=== PATIENT | female | born 1940 | race Caucasian/White ===

== ENCOUNTER 2017-03-06 06:59 | Observation (INO) | payer OTHER ==
[~2017-03-06] VITALS: Ht 160 cm; Wt 62.5 kg
--- NOTE | ~2017-03-06 | EKG ---
[place] [address] [facility] [place] [address] ELECTROCARDIOGRAM REPORT Name: KALYANI JOINER Room #: 217-P [facility]#: [id number] Admission: 03/06/17 Attend Phys: Jose Deshpande MD, Discharge: 03/07/17 Date of : 36 Report #: [id number] THIS REPORT FOR: //name// [facility] Test Date: 2017-03-06 Test Time: 07:36:29 Pat Name: KALYANI JOINER Department: Room: [facility] Gender: F Rn Quality: : 1940 Requested By: Jose Deshpande Order Number: [id number] MD: Abner Villalobos Measurements Intervals [place] Rate: 56 P: 3 NE: 158 QRS: -6 QRSD: 89 T: 9 QT: 437 QTc: 422 Interpretive Statements Sinus rhythm LVH by voltage Compared to ECG 06/04/2015 13:02:29 No significant change was found Electronically Signed On 03-08-2017 7:05:00 CDT by Abner Villalobos [email or web address] <ELECTRONICALLY SIGNED> By: Abner Villalobos MD, [facility] 03/08/17704 5 Abner Villalobos MD, [facility] /EPI
--- NOTE | ~2017-03-06 | CATHLAB ---
[place] [address] [place] [address] INVASIVE PROCEDURE REPORT Name: MYRNA JOINERN SIRISHA Room #: 217-P [facility] [place] .#: [id number] Admission: 03/06/17 Attend Phys: Jose Deshpande, Discharge: 03/07/17 Date of : 36 Date of Service: 03/09/17 1704 Report #: [id number] THIS REPORT FOR: //name// APPROVED REPORT Patient Details Patient Status: Out-Patient Room #: The patient is a 76 year-old female Event Personnel Jose Deshpande Manager Voice, Nuzhat Allen RN RN, Anamaria Walker Mahmood, Amber Scrub, Sandifer, David Monitor Procedure Narrative The patient was brought electively to the Cardiac Catheterization Laboratory and was prepped and draped in a sterile manner. The Right Groin^ was infiltrated with 1% Lidocaine subcutaneous anesthesia. A PINNACLE 6FR Sheath #[id number] sheath was inserted into the RFA^. Coronary angiography was performed using coronary diagnostic catheters. The right coronary system was accessed and visualized with a JR4 catheter. The left coronary system was accessed and visualized with a JL4 catheter. The left ventricle was accessed and visualized with a PIGTAIL catheter. An aortogram of the abdominal aorta was performed. The patient tolerated the procedure well and there were no complications associated with the procedure. Intraoperative Conscious Sedation Sedation start time: 8:49 Case end Time: 10:53 Fentanyl 100.0 mcg Versed 2.0 mg Fluoro Time: 24.06 minutes Dose: 1933 mGy Contrast Type and Amount: Omnipaque 285 ml Hemodynamics The aortic pressure is 188/84 mmHg with a mean of 89 mmHg. The left ventricular pressure is 175/6 mmHg with a mean of mmHg. PCI Technique Lesion Percutaneous coronary intervention was performed on the mid left anterior descending artery segment. A LAUNCHER 6FR EBU 3.5 #[id number] Guide Catheter was used to engage the LCA ostium. A Luge Wire .014 x 182CM #[id number] Interventional Guidewire was used to cross the [facility] [place] [address] INVASIVE PROCEDURE REPORT Name: KALYANI JOINER Room #: 217-P [facility] [place] ..#: [id number] Admission: 03/06/17 Attend Phys: Jose Deshpande, Discharge: 03/07/17 Date of : 36 Date of Service: 03/09/17 1704 Report #: [id number] lesion. BALLOON DILATION A Balloon catheter Sprinter OTW 2.5 x 12 #[id number] was inserted and inflated up to 10.00atm for 19seconds. Additional Inflation: 4.00atm for 19seconds. Additional Inflation: 4.00atm for 18seconds. STENT DEPLOYMENT A drug-eluting stent RESOLUTE OTW 2.5 X 18 #[id number] was inserted and inflated up to 10.00atm for 19seconds. Additional Inflation: 14.00atm for 23seconds. Additional Inflation: 16.00atm for 20seconds. PCI Technique Lesion 2 Percutaneous Coronary Intervention was performed on the first diagnonal branch segment. Conclusion #1 assessment PTCA stent of subtotal proximal mid LAD lesion bifurcation placement of a 2 5 x 18 and 2 5 x 8 resolute drug-eluting stents postdilated 2.7 mm in size moderate distal disease #2 successful PTCA of the ostial diagonal proximal lesion through the stent diagonal was jailed by the stent with 30-40% residual VALENTIN grade 3 flow #3 circumflex OM with 3040% proximal mid vessel lesion nondominant #4 distal left main with a 30% irregularity #5 dominant right with a mid vessel lesion of 40-50 and a distal lesion 4050% giving rise to a moderately disease PDA and ALVAREZ dominant system #6 normal left ventricular size and systolic function EF 60% #7 abdominal aorta is intact with mild aortic ectasia small aneurysm we'll evaluate with outpatient ultrasound. Discussion complex LAD diagonal system requiring dual wire technique multiple balloons and wires. Successful procedure outcome with widely patent LAD as stated above and PTCA of diagonal branch which was jailed. Will continue dual antiplatelet therapy at least one year. No MRI or dental work for 3 months no leg Jacuzzi or tubs for 1 week. Transfer to CCU in stable condition follow post stent protocol. <ELECTRONICALLY SIGNED> By: Jose Deshpande MD, [facility] 03/09/171703 03 03 Jose Deshpande MD, FACC /INF
--- NOTE | ~2017-03-06 | EKG ---
[address] [address] ELECTROCARDIOGRAM REPORT Name: KALYANI JOINER Room #: 217-[facility]#: [id number] Admission: 03/06/17 Attend Phys: Jose Deshpande MD, Discharge: 03/07/17 Date of : 36 Report #: [id number] THIS REPORT FOR: //name// [facility] Test Date: 2017-03-06 Test Time: 16:55:38 Pat Name: KALYANI JOINER Department: Room: [facility] Gender: F [employer]visor [employer]: [place] MODI : 1940 Requested By: Jose Deshpande Order Number: [id number] MD: Abner Villalobos Measurements Intervals [place] Rate: 70 P: 14 VT: 157 QRS: 16 QRSD: 93 T: 24 QT: 426 QTc: 460 Interpretive Statements Sinus rhythm Normal tracing Compared to ECG 06/04/2015 13:02:29 No significant changes Electronically Signed On 03-08-2017 7:17:59 CDT by Abner Villalobos [email or web address] <ELECTRONICALLY SIGNED> By: Abner Villalobos MD, [facility] 03/08/17716 1655 1655 Abner Villalobos MD, [facility] /EPI
--- NOTE | ~2017-03-06 | H ---
[facility] [place] [address] HISTORY AND PHYSICAL Name: KALYANI JOINER Room #: [facility].#: [id number] Admission: 03/06/17 Attend Phys: Jose Deshpande MD, Discharge: Date of : 36 Report #: [id number] THIS REPORT FOR: //name// CC: Jose Hunt MD DATE OF SERVICE: 03/06/2017 HISTORY OF PRESENT ILLNESS: The patient is a 76-year-old female admitted here today for cardiac catheterization. Previously, she had some recurrent and some atypical with typical symptoms of chest pain. Subsequently, underwent stress echocardiographic exam with , this was on 03/02/2017. There was an equivocal EKG and more significant echo finding suggestive of a subtle area of ischemia in the distal septum apical wall. Ejection fraction was normal at rest. She has been compliant with her medications. She has taken it fairly easy since our discussion last week. No recurrent. No pain at rest. History of hypertension and hypercholesterolemia. CURRENT MEDICATIONS: Temazepam, metoprolol 100, Norvasc 2.5, Prolia, pravastatin 40 and aspirin. PAST MEDICAL HISTORY: Positive for some borderline tachycardia, palpitations, now recurrent chest pain, hypertension, hypercholesterolemia, adenoidectomy, hysterectomy, rotator cuff surgery, TAHBSO and tonsillectomy. FAMILY HISTORY: Mother had coronary artery disease, but she was older. SOCIAL HISTORY: She is a former smoker. No illicit drugs, moderate alcohol, 1-2 glasses of wine a day. She is retired, with grown children, 3-4 cups of coffee a day. ALLERGIES: HCTZ AND PENICILLIN. REVIEW OF SYSTEMS: Essentially negative except for stated above. LABORATORY DATA: Lipids have been elevated in the past in the 300s, total cholesterol and LDL has been in the 150s. We are trying to treat these more aggressively. Creatinine today for this is 0.67, H and H are 13.9 and 42.5. ASSESSMENT: 1. Suspected coronary artery disease with chest pain, abnormal stress echo. 2. Hypertension. 3. Hypercholesterolemia. 4. Family history of premature coronary artery disease. 5. Degenerative joint disease. [facility] [address] [place] [address] HISTORY AND PHYSICAL Name: KALYANI JOINER Room #: [facility].#: [id number] Admission: 03/06/17 Attend Phys: Jose Deshpande MD, Discharge: Date of : 36 Report #: [id number] RECOMMENDATIONS AND PLAN: I have discussed above with the patient and will proceed to the catheterization lab to delineate the anatomy. Risks, benefits, alternatives were discussed with her, could resolve in intervention and I will certainly be in contact with you regarding the outcome. By: [id number] Jose Deshpande MD, FACC /nt
--- NOTE | ~2017-03-06 | EKG ---
[place] [address] [facility] [place] [address] ELECTROCARDIOGRAM REPORT Name: KALYANI JOINER Room #: 217-P [facility]#: [id number] Admission: 03/06/17 Attend Phys: Jose Deshpande MD, Discharge: 03/07/17 Date of : 36 Report #: [id number] THIS REPORT FOR: //name// [facility] Test Date: 2017-03-06 Test Time: 13:59:51 Pat Name: KALYANI JOINER Department: Room: [facility] Gender: F Bell Spinner Sousaphones: Mikaela ORTIZ : 1940 Requested By: Jose Deshpande Order Number: [id number] MD: Abner Villalobos Measurements Intervals [place] Rate: 67 P: 44 ND: 158 QRS: 10 QRSD: 94 T: -1 QT: 432 QTc: 456 Interpretive Statements Sinus rhythm Consider left ventricular hypertrophy Compared to ECG 06/04/2015 13:02:29 No significant changes Electronically Signed On 03-08-2017 7:15:11 CDT by Abner Villalobos [email or web address] <ELECTRONICALLY SIGNED> By: Abner Villalobos MD, [facility] 03/08/17 0715 [id number] [id number] Abner Villalobos MD, [facility] /EPI
--- NOTE | ~2017-03-06 | EKG ---
[place] [address] [facility] [place] [address] ELECTROCARDIOGRAM REPORT Name: KALYANI JOINER Room #: 217-[facility]#: [id number] Admission: 03/06/17 Attend Phys: Jose Deshpande MD, Discharge: 03/07/17 Date of : 36 Report #: [id number] THIS REPORT FOR: //name// [facility] Test Date: 2017-03-07 Test Time: 06:49:12 Pat Name: KALYANI JOINER Department: Room: [facility] Gender: F [employer] Senior Manager: : 1940 Requested By: Jose Deshpande Order Number: [id number] MD: Abner Villalobos Measurements Intervals [place] Rate: 59 P: 8 VT: 162 QRS: 7 QRSD: 93 T: 29 QT: 425 QTc: 421 Interpretive Statements Sinus rhythm No significant abnormality Compared to ECG 06/04/2015 13:02:29 No significant changes Electronically Signed On 03-08-2017 7:46:29 CDT by Abner Villalobos [email or web address] <ELECTRONICALLY SIGNED> By: Abner Villalobos MD, [facility] 03/08/17 0746 0649 Abner Villalobos MD, [facility] /EPI
--- NOTE | ~2017-03-06 | D ---
[facility] [place] [address] DISCHARGE SUMMARY Name: KALYANI JOINER Room #: 217-P [facility] M.R.#: [id number] Admission: 03/06/17 Attend Phys: Jose Deshpande MD, Discharge: Date of : 36 Report #: [id number] THIS REPORT FOR: //name// CC: Jose Hunt MD HOSPITAL COURSE: The patient is a 76-year-old female who was admitted with an abnormal stress echocardiogram. Suggested anterior wall ischemia. Subsequently taken to the catheterization lab and revealed a high grade complex proximal mid LAD diagonal bifurcation lesion. The fair amount of difficulty was able to eventually wire these vessels with dual wires and eventually dilate the LAD initially with a 2.5 balloon and then placed a 2.5 x 18 Resolute drug-eluting stent across the diagonal branch. This was obviously pinched the ostium, I was able to rewire again with a 2.25 balloon, this was also with some difficulty, I dilated the ostium through the stent, moderate disease in this diagonal was relatively small. I then had evidence of some significant narrowing distal to the LAD stents and extended that stent with a 2.5 x 8 Resolute drug-eluting stent, postdilated all with a 2.5 stents up to 2.8 mm in size, the 16-17 mm of pressure. She has preserved LV function and was treated with heparin and Integrilin and Brilinta loading dose of 90 b.i.d. with a baby aspirin. We will also restart metoprolol 100, Norvasc 2.5, pravastatin 40 and a baby aspirin, temazepam night p.r.n. and feels well. She is up and ambulating, the groin is stable. Potassium 3.4, creatinine is 0.6, H and H is 12.4 and 36.9. Troponin was 1.8 and I would expect that post-this procedure, so it is difficult. She will be discharged home on medications as stated. No MRI or dental work for 3 months. Low fat, low sodium, cholesterol diet, resume aerobic activity after 48 hours. No lying in tub, Jacuzzi or Solitario for a week. Follow up in 3 months in the office. DISCHARGE DIAGNOSES: 1. Coronary artery disease with successful PTCA stent of the LAD, successful PTCA of diagonal branch, which was jailed by the LAD stent with an excellent result. 2. Hypertension. 3. Hypercholesterolemia. 4. Degenerative joint disease. Thank you for asking us to assist in the care of this patient. By: [id number] Jose Deshpande MD, [facility] /nt
[~2017-03-06 06:59] MED LIST: ADVIL100 M2 PO; ALIGN4 MG PO; CALCIUM 500 +1 EAC6 PO; IBUPROFEN 200200 M1 PO; LIPITOR20 MG PO; MAGNESIUM250 M1 PO; NORVASC2.5 MG PO; PRAVACHOL40 MG PO; PROLIA60 MG/1 ML; TOPROL XL100 MG PO
[2017-03-06] MEDS ORDERED: ATORVASTATIN CA40 MG PO (07:24)
[2017-03-06] MEDS ORDERED: AVAPRO300 MG PO (07:24)
[2017-03-06] MEDS ORDERED: TOPROL XL100 MG PO (07:25)
[2017-03-06] MEDS ORDERED: ASPIRIN325 PO (07:26)
[2017-03-06 08:00] VITALS: BP 166/86
[2017-03-06 16:40] VITALS: BP 117/67
[2017-03-06 20:06] VITALS: BP 112/65
[2017-03-06 23:19] VITALS: BP 133/73
[2017-03-07 03:48] LABS: HEMATOCRIT 36.9 % (37.0-47.0); HEMOGLOBIN 12.4 gm/dL (12.0-15.0); MCH 29.4 pg (26.0-34.0); MCHC 33.7 g/dL (28.0-37.0); MCV 87.4 fL (80.0-100.0); RBC 4.22 mil/uL (4.20-5.00); RDW 15.1 % (10.5-14.5); WBC 5.8 thou/uL (4.0-11.0)
[2017-03-07 03:53] LABS: ANION GAP 11 mmol/L (7-16); BUN 16 mg/dL (7-18); CALCIUM 8.4 mg/dL (8.5-10.1); CHLORIDE 106 mmol/L (98-107); CHOLESTEROL 234 mg/dL (<200); CK-MB MASS 5.9 ng/mL (<0.5-3.6); CO2 23 mmol/L (21-32); CREATININE 0.6 mg/dL (0.6-1.0); GLUCOSE 92 mg/dL (74-106); HDL CHOLESTEROL 78 mg/dL (>40); LDL CHOLESTEROL 130 mg/dL (<100); POTASSIUM 3.4 mmol/L (3.5-5.1); SODIUM 140 mmol/L (136-145); TRIGLYCERIDE 133 mg/dL (<150); VLDL 27 mg/dL (<40)
[2017-03-07 03:57] LABS: SERUM ASSESSMENT Clear; TROPONIN-I 1.89 ng/mL (<0.04-0.07)
[2017-03-07 04:46] VITALS: BP 132/74
[2017-03-07 07:29] VITALS: BP 153/78
[2017-03-07] MEDS ORDERED: BRILINTA90 MG PO (07:44)
[2017-03-07] MEDS ORDERED: ASPIR 8181 MG PO (07:45)
[2017-03-07 07:54] VITALS: BP 153/78
[2017-03-07 08:23] VITALS: BP 153/78
== END 2017-03-07 11:03 | disposition home or self-care (01) ==
LOC: CATH 06:59 → 2N 15:28
PROVIDERS: Internal Medicine Cardiovascular Disease
DX: I25.10 Atherosclerotic heart disease of native coronary artery without angina pectoris (principal); I10 Essential (primary) hypertension; E78.00 Pure hypercholesterolemia, unspecified; M19.90 Unspecified osteoarthritis, unspecified site; Z79.891 Long term (current) use of opiate analgesic

== ENCOUNTER 2017-07-04 19:33 | Emergency (ER) | payer OTHER ==
[~2017-07-04] VITALS: Ht 160 cm; Wt 63.5 kg
[~2017-07-04 19:33] MED LIST changes: +ASPIR 8181 MG PO; +ASPIRIN325 PO; +ATORVASTATIN CA40 MG PO; +AVAPRO300 MG PO; +BRILINTA90 MG PO
[2017-07-04] MEDS ORDERED: BENICAR40 MG PO (19:46)
[2017-07-04] MEDS ORDERED: CRESTOR20 MG PO (19:47)
[2017-07-04] MEDS ORDERED: PLAVIX 75 MG TA75 M1 PO (19:48)
== END 2017-07-04 21:17 | disposition home or self-care (01) ==
LOC: ER 19:33
DX: S70.11XA Contusion of right thigh, initial encounter (principal); I10 Essential (primary) hypertension; E78.5 Hyperlipidemia, unspecified; F10.99 Alcohol use, unspecified with unspecified alcohol-induced disorder; Z90.710 Acquired absence of both cervix and uterus; Z88.0 Allergy status to penicillin; Z88.8 Allergy status to other drugs, medicaments and biological substances; W01.0XXA Fall on same level from slipping, tripping and stumbling without subsequent striking against object, initial encounter; Y93.01 Activity, walking, marching and hiking; Y92.480 Sidewalk as the place of occurrence of the external cause; Y99.8 Other external cause status

== ENCOUNTER 2018-02-20 15:33 | Inpatient (IN) | payer OTHER ==
[~2018-02-20] VITALS: Ht 162.6 cm; Wt 63.5 kg
[~2018-02-20 15:33] MED LIST changes: +BENICAR40 MG PO; +CRESTOR20 MG PO; +PLAVIX 75 MG TA75 M1 PO
[2018-02-20 15:59] VITALS: BP 96/45
[2018-02-20 16:15] LABS: ABSOLUTE NEUTROPHILS 5.1 thou/uL (1.4-8.2); BASOPHILS 0.9 % (0.0-2.0); HEMATOCRIT 39.2 % (37.0-47.0); HEMOGLOBIN 13.1 gm/dL (12.0-15.0); LYMPHOCYTES 16.5 % (24.0-44.0); MCH 29.1 pg (26.0-34.0); MCHC 33.5 g/dL (28.0-37.0); MCV 86.9 fL (80.0-100.0); MONOCYTES 9.2 % (1.0-8.0); PLATELET COUNT 166 thou/uL (150-400); POLYS 72.4 % (36.0-66.0); RBC 4.51 mil/uL (4.20-5.00); WBC 7.1 thou/uL (4.0-11.0)
[2018-02-20 16:30] LABS: APTT 27.8 Seconds (24.5-32.8); PROTIME 10.1 Seconds (9.3-11.4)
[2018-02-20 16:31] LABS: ALBUMIN 4.2 g/dL (3.4-5.0); CALCIUM 9.5 mg/dL (8.5-10.1); CREATININE 0.9 mg/dL (0.6-1.0); POTASSIUM 4.3 mmol/L (3.5-5.1); TOTAL BILIRUBIN 0.4 mg/dL (<0.1-1.0); TOTAL PROTEIN 7.4 g/dL (6.4-8.2)
[2018-02-20 17:58] VITALS: BP 96/45
[2018-02-20 19:00] VITALS: BP 96/45
[2018-02-20 19:07] VITALS: BP 190/100
[2018-02-20 23:32] VITALS: BP 129/70
[2018-02-21 03:47] VITALS: BP 142/56
[2018-02-21] MEDS ORDERED: HYDROCODON-ACE1 EAC7 PO (07:53)
[2018-02-21 08:10] VITALS: BP 149/84
[2018-02-21 11:05] VITALS: BP 131/74
[2018-02-21 13:38] VITALS: BP 131/74
== END 2018-02-21 14:34 | disposition home or self-care (01) | DRG 200 ==
LOC: ER 15:33 → EROBS 17:42 → 2N 17:42 → ENTRNSPT 02-21 14:05 → EDTRNSPTSTS 02-21 14:07 → 2N 02-21 14:34
PROVIDERS: Physician Assistant
DX: S27.0XXA Traumatic pneumothorax, initial encounter (principal); S22.31XA Fracture of one rib, right side, initial encounter for closed fracture; D68.9 Coagulation defect, unspecified; E78.5 Hyperlipidemia, unspecified; I10 Essential (primary) hypertension; S40.021A Contusion of right upper arm, initial encounter; S70.02XA Contusion of left hip, initial encounter; I25.10 Atherosclerotic heart disease of native coronary artery without angina pectoris; Z95.5 Presence of coronary angioplasty implant and graft; Z90.710 Acquired absence of both cervix and uterus; Z88.0 Allergy status to penicillin; Z88.8 Allergy status to other drugs, medicaments and biological substances; Z87.891 Personal history of nicotine dependence; W07.XXXA Fall from chair, initial encounter; Y93.89 Activity, other specified; Y92.89 Other specified places as the place of occurrence of the external cause; Y99.8 Other external cause status
CPT/HCPCS: 10081

== ENCOUNTER → 2018-06-06 | Outpatient (CLI) | payer OTHER ==
[~2018-06-06] MED LIST changes: +HYDROCODON-ACE1 EAC7 PO
== END ==
LOC: MRI 13:49
DX: S83.241A Other tear of medial meniscus, current injury, right knee, initial encounter (principal); M25.461 Effusion, right knee; M22.41 Chondromalacia patellae, right knee; X58.XXXA Exposure to other specified factors, initial encounter; Y93.89 Activity, other specified; Y92.89 Other specified places as the place of occurrence of the external cause; Y99.8 Other external cause status

== ENCOUNTER → 2020-02-24 | Outpatient (CLI) | payer OTHER | LOC: SJCVC 12:08 | PROVIDERS: ATTEND Internal Medicine Cardiovascular Disease | DX: R00.1 Bradycardia, unspecified (principal); R94.31 Abnormal electrocardiogram [ECG] [EKG]; I25.10 Atherosclerotic heart disease of native coronary artery without angina pectoris; I10 Essential (primary) hypertension; E78.00 Pure hypercholesterolemia, unspecified; I71.4 Abdominal aortic aneurysm, without rupture; I65.23 Occlusion and stenosis of bilateral carotid arteries; E78.5 Hyperlipidemia, unspecified; Z82.49 Family history of ischemic heart disease and other diseases of the circulatory system; Z87.891 Personal history of nicotine dependence; Z79.82 Long term (current) use of aspirin; Z79.899 Other long term (current) drug therapy ==

== ENCOUNTER → 2020-10-07 | Outpatient (CLI) | payer OTHER | LOC: SJCVCIMAG 09-23 08:05 | PROVIDERS: ATTEND Internal Medicine Cardiovascular Disease | DX: I25.10 Atherosclerotic heart disease of native coronary artery without angina pectoris (principal); E78.5 Hyperlipidemia, unspecified; I10 Essential (primary) hypertension; Z88.1 Allergy status to other antibiotic agents; Z88.0 Allergy status to penicillin; Z95.5 Presence of coronary angioplasty implant and graft ==